=== PATIENT | male | born 1995 | race African-American/Black ===

== ENCOUNTER 2016-06-04 17:23 | Emergency (ER) | payer OTHER ==
[~2016-06-04] VITALS: Ht 182.9 cm; Wt 76.2 kg
[~2016-06-04 17:23] MED LIST: MONT1TAB3 PO
[2016-06-04 17:31] VITALS: TEMP 36.8; Ht 182.9 cm; Wt 76.2 kg
[2016-06-04 18:23] LABS: URINE APPEARANCE CLEAR (CLEAR); URINE BILIRUBIN NEG (NEG); URINE COLOR YELLOW; URINE NITRITE NEG (NEG); URINE PH >= 9.0 (4.5-7.5); URINE SPECIFIC GRAVITY 1.022 (1.000-1.030); UROBILINOGEN NEG (NEG)
[2016-06-04 18:27] LABS: MANUAL MICROSCOPIC REQUIRED? NO; REVIEW REQ? NO
[2016-06-04] MEDS ORDERED: CEFTRIAXONE SOD 350MG/ML 1 GM VIAL IM STA (18:46)
[2016-06-04] MEDS ORDERED: DOXY100C PO (18:55)
[2016-06-04] MEDS ORDERED: DOXYCYCLINE HYCLATE 100 MG CAP PO ONE (19:00)
[2016-06-04 19:01] VITALS: BP 128/76; PULSE 61; O2SAT 97
--- NOTE | 2016-06-04 21:43 | EMERGENCY ROOM VISIT NOTE ---
History Report prepared by Joie: Grzegorz Mustfaa Under the Supervision of: Dr. Giuliano Harris D.O. First contact with patient: 18:00 Chief Complaint: URINARY SYMPTOMS Stated Complaint: BURNING DURING URINATION Nursing Triage Summary: burning with urination concerned he has a STD as he had unprotected sex 3 weeks ago History of Present Illness The patient is a 20 year old male who presents to the Emergency Room with complaints of persistent burning with urination that started two days ago. The patient denies increased frequency or feeling that he cannot completely void. He denies penile discharge or testicular pain. He also expresses concern over a bump in the genital area that appeared several days ago. The patient is concerned that he has an STD. He had sex two weeks ago without a condom. The patient denies any past STDs. He does not any medical problems and denies surgical history. Patient denies headache, change in vision, fevers, chest pain , shortness of breath, nausea, vomiting, diarrhea, and melena. Source of History: patient Onset: two days ago Position: other (urinary system) Quality: other (burning with urination) Timing: other (persistent) Associated Symptoms: No chest pain, No diarrhea, No fevers, No headache, No melena, No nausea, No vomiting Review of Systems See HPI for pertinent positives & negatives. A total of 10 systems reviewed and were otherwise negative. Past Medical & Surgical Medical Problems: (1) Alcohol overdose Family History No pertinent family history Social History Smoking Status: Never Smoker Marital Status: single Housing Status: lives with roommate Occupation Status: student Current/Historical Medications Scheduled Doxycycline Hyclate (Vibramycin), 100 MG PO BID Montelukast Sodium (Singulair), 10 MG PO DAILY Allergies Coded Allergies: Codeine (Verified Adverse Reaction, Intermediate, MIGRAINE, 10/30/15) Physical Exam Vital Signs Date Time Temp Pulse Resp B/P Pulse Ox O2 Delivery O2 Flow Rate FiO2 06/04/16 19:01 61 20 128/76 97 Room Air 06/04/16 17:31 36.8 82 20 126/81 97 Room Air Physical Exam GENERAL: Sitting up in bed, alert, well appearing, well nourished, no distress, non-toxic EYE EXAM: normal conjunctiva. OROPHARYNX: Mucous membranes are moist. LUNGS: Clear to auscultation. Normal chest wall mechanics HEART: no murmurs, S1 normal and S2 normal ABDOMEN: abdomen soft, non-tender, normo-active bowel sounds, no masses, no rebound or guarding. BACK: Back is symmetrical on inspection and there is no deformity, no midline tenderness, no CVA tenderness. SKIN: no rashes and no bruising UPPER EXTREMITIES: upper extremities are grossly normal. LOWER EXTREMITIES: No pitting edema. NEURO EXAM: Normal sensorium, cranial nerves II-XII grossly intact, normal speech, no gross weakness of arms, no gross weakness of legs. Gross sensation intact. : Normal external genitalia, no penile discharge, testicles nontender, no appreciable hernia. Small nodule on the proximal shaft of penis without discharge. Medical Decision & Procedures Laboratory Results Test 06/04/16 17:50 06/04/16 18:05 Urine Color YELLOW Urine Appearance CLEAR (CLEAR) Urine pH >= 9.0 (4.5-7.5) Urine Specific [place] 1.022 (1.000-1.030) Urine Protein NEG (NEG) Urine Glucose (UA) NEG (NEG) Urine Ketones TRACE (NEG) Urine Occult Blood NEG (NEG) Urine Nitrite NEG (NEG) Urine Bilirubin NEG (NEG) Urine Urobilinogen NEG (NEG) Urine Leukocyte Esterase TRACE (NEG) Urine WBC (Auto) 1-5 /hpf (0-5) Urine RBC (Auto) 0-4 /hpf (0-4) Urine Hyaline Casts (Auto) 1-5 /lpf (0-5) Urine Epithelial Cells (Auto) 5-10 /lpf (0-5) Urine Bacteria (Auto) NEG (NEG) Laboratory results per my review. Medications Administered Medications (Trade) Dose Ordered Sig/Evelina Route Start Time Stop Time Status Last Admin Dose Admin Ceftriaxone Sodium (Rocephin Im) 250 mg NOW STAT IM 06/04/16 18:46 06/04/16 18:47 DC 06/04/16 18:58 250 MG Doxycycline Hyclate (Vibramycin Cap) 100 mg ONE ONCE PO 06/04/16 19:00 06/04/16 19:01 DC 06/04/16 18:58 100 MG ED Course ED COURSE: Vital signs were reviewed and were normal. The patients medical record was reviewed The above diagnostic studies were performed and reviewed. ED treatments and interventions as stated above. 1804: The patient was evaluated in room A4b. A complete history and physical examination was performed. 1845: Rocephin 250 mg PO. 1899: Doxycycline Hyclate 100 mg PO. 1849: Updated the patient. 1854: Upon reevaluation, the patient is doing well.I discussed my findings with the patient and he understands and agrees with the treatment plan. Based on the patients age, coexisting illnesses, exam and lab findings the decision to treat as an outpatient was made. The patient remained stable while under my care. The patient appeared well at the time of discharge. Medical Decision Differential diagnosis: UTI, gonorrhea, chlamydia, herpes. Patient is a 20-year-old male who presents the ER for dysuria which started over the past 2 days. He did have unprotected sex 10 days ago. UA was unremarkable. GC and continuous sent. He has no other complaints. Based on his age and unprotected sex, I treated him for STDs with Rocephin and doxycycline. Patient was updated and instructed not to have intercourse for the next 2 weeks. Discussed with Pt concerning signs and symptoms to watch out for. Pt was instructed to follow up with their PCP and discussed with the patient their option to return to the ED at anytime for persistent or worsening symptoms. The appropriate anticipatory guidance and out-patient management, including indications for return to the emergency department, were explained at length to the patient and understood. Impression Primary Impression: STD (male) Additional Impressions: Symptoms involving urinary system Dysuria Scribe Attestation The scribe's documentation has been prepared under my direction and personally reviewed by me in its entirety. I confirm that the note above accurately reflects all work, treatment, procedures, and medical decision making performed by me. Departure Information Dispostion Home / Self-Care Prescriptions Doxycycline Hyclate (VIBRAMYCIN) 100 Mg Cap 100 MG PO BID for 10 Days, CAP Prov: Giuliano Harris, DO 06/04/16 Referrals No Doctor, Assigned (PCP) Forms HOME CARE DOCUMENTATION FORM, IMPORTANT VISIT INFORMATION Patient Instructions My [facility], STD Poss Additional Instructions Please follow up with your primary care doctor or if you are a student [employer] with in the next 24 hours. Any worsening of your symptoms, please return to the ED immediately. This includes any fevers greater than 100.4, worsening pain, passing out, or any other concerning signs or symptoms from your standpoint. Please take antibiotics as prescribed. Please do not drink alcohol accommodation with these. Please refrain from any kind of sexual intercourse the next 2 weeks. Problem Qualifiers
[2016-06-07 20:57] LABS: CHLAMYDIA TRACH RNA*** DETECTED (NOT DETECTED); GC (NEIS GONORRHOEAE)RNA** NOT DETECTED (NOT DETECTED)
== END 2016-06-04 19:20 | disposition home or self-care (01) ==
LOC: C.EDB 17:26 → C.EDA 19:20
DX: A64 Unspecified sexually transmitted disease (principal); R30.0 Dysuria; Z79.899 Other long term (current) drug therapy

== ENCOUNTER 2016-10-30 13:09 | Emergency (ER) | payer OTHER ==
[~2016-10-30] VITALS: Ht 182.9 cm; Wt 73.2 kg
[2016-10-30 13:13] VITALS: TEMP 36.6; Ht 182.9 cm; Wt 73.2 kg
[2016-10-30] MEDS ORDERED: CETI10TA84 PO (13:54)
[2016-10-30] MEDS ORDERED: ADVIN10050 (13:54)
--- NOTE | 2016-10-30 14:13 | DIAGNOSTIC IMAGING REPORT ---
RIGHT KNEE 3 VIEWS CLINICAL HISTORY: R knee injury fall x2 Right pain COMPARISON: None. DISCUSSION: Prepatellar soft tissue edema. No acute bony abnormality. Joint spaces are well-preserved. IMPRESSION: Prepatellar soft tissue edema. No acute bony abnormality. The above report was generated using voice recognition software. It may contain grammatical, syntax or spelling errors. Electronically signed by: Eyad Garrison M.D. 10/30/2016 2:11 PM Dictated Date/Time: 10/30/2016 2:11 PM
[2016-10-30 14:42] VITALS: BP 146/71; PULSE 82; O2SAT 96
--- NOTE | 2016-10-30 23:07 | EMERGENCY ROOM VISIT NOTE ---
ED Visit Note First contact with patient: 13:15 Chief Complaint: I fell and hurt my right knee. History of Present Illness: Mr. Ruiz is a 21-year-old black male who ambulates into the ED complaining of right knee pain. Patient reports over last 2 weeks he slipped and fell twice onto the right patella. He has noted swelling and bruising over the patella. The last time he fell was 2 days ago and reports he has been having increasing pain and swelling over the right patella. Currently he describes his pain as a deep achy sensation. He rates his discomfort 6/10. His pain is nonradiating. Pain worsens with palpation of the patella and flexion beyond 90. He has not identified any alleviating factors related to the pain. He has not taken a medication for pain prior to arrival at the hospital. He denies any associated symptoms including back pain, hip pain, lower leg pain, ankle pain, foot pain, leg weakness/numbness/tingling. Additionally he denies any previous significant injuries or surgeries to the knee. Review of Systems: As noted above in history of present illness. Past Medical History: Asthma. Current Medications: Singulair, Zyrtec, Advair. Allergies to Medications: Codeine. Social History: Patient is currently employed; he feels safe in his home environment; he denies tobacco use; he admits to alcohol use. Physical Examination: Vital Signs: Date Time Temp Pulse Resp B/P (MAP) Pulse Ox O2 Delivery O2 Flow Rate FiO2 10/30/16 14:42 82 18 146/71 96 10/30/16 13:13 36.6 99 16 144/88 95 Room Air GENERAL: 21-year-old male in mild distress due to pain, nontoxic-appearing, afebrile and hemodynamically stable. NEUROLOGICAL: Awake, alert and oriented to person, place and time. Answering questions appropriately and following commands. SKIN: Warm, dry and pink. RIGHT LOWER EXTREMITY: No gross bony deformity. No shortening or malrotation. No tenderness in the hip, thigh, lower leg, ankle or foot. Mild tenderness over the patella where there is a contusion and hematoma. There is no breaks in the tissue for open soft tissue injuries. No patellar apprehension test. Negative ballottement test. No tenderness over the medial or lateral joint line. No ligamentous laxity of the collateral or cruciate ligaments. Patient had slightly restricted flexion to just beyond 90 but no restriction on his extension. Negative bounce test. Throughout the foot and leg the skin was warm and pink and capillary refill is brisk. He was able to distinctly slight sensations through all dermatomes. ED Course: Patient is assessed as noted above. Patient's medication list was reviewed. Right Knee X-Rays: Were read by myself and the radiologist showing no acute fractures or dislocations. No joint effusion. Prepatellar soft tissue swelling noted. Patient was offered pain medication and refused. Patient's knee was wrapped in an Damion bandage. Patient was educated about today's findings and instructed on his treatment plan ; he verbalized understanding and agreement with this plan. Clinical Impression: Right knee contusion and hematoma. Decision-Making: Initially my differential diagnosis I considered contusion, hematoma, patellar fracture, joint effusion, ligamentous injury and other causes. Disposition: Patient discharged home in stable condition; prior to departure he was reassessed and subjectively reported he was feeling better and was pain- free. Plan: Patient was encouraged to alternate ibuprofen and acetaminophen every 3 hours as needed for pain. Patient was encouraged use the Damion bandage to add compression onto the contusion /hematoma. Patient was encouraged use ice on the area for swelling or pain. Patient is encouraged to follow-up with orthopedics if no better in 5-6 days. Patient was encouraged return ED for worsening/uncontrolled pain, uncontrolled swelling or any new/concerning symptoms.
== END 2016-10-30 14:44 | disposition home or self-care (01) ==
LOC: C.EDB 13:12 → C.EDD 14:44
DX: S80.01XA Contusion of right knee, initial encounter (principal); W19.XXXA Unspecified fall, initial encounter; J45.909 Unspecified asthma, uncomplicated

== ENCOUNTER → 2017-02-27 | Outpatient (CLI) | payer SELFPAY ==
[~2017-02-27] MED LIST changes: +ADVIN10050; +CETI10TA84 PO
--- NOTE | 2017-02-27 16:07 | DIAGNOSTIC IMAGING REPORT ---
R SHOULDER MIN 2 VIEWS ROUTINE CLINICAL HISTORY: INJURY OF RIGHT SHOULDER AND UPPER ARM COMPARISON: None FINDINGS: Alignment of the right shoulder is anatomic. No fracture is identified. No osseous lesion is noted. IMPRESSION: No acute fracture or dislocation of the right shoulder. Electronically signed by: Ralph Moyer M.D. 02/27/2017 4:06 PM Dictated Date/Time: 02/27/2017 4:05 PM
== END | disposition home or self-care (01) ==
LOC: C.RAD1850 15:23
PROVIDERS: ATTEND Family Medicine
DX: S49.91XA Unspecified injury of right shoulder and upper arm, initial encounter (principal); X58.XXXA Exposure to other specified factors, initial encounter